=== PATIENT | male | born 1955 | race Caucasian/White ===

== ENCOUNTER 2022-09-23 05:26 | Observation (INO) ==
--- NOTE | 2022-08-17 11:45 | PAT Medication Instructions ---
Medication Instructions Date of Service August 17, 2022 Home Medications Medication Instructions Recorded lisinopril 20 mg tablet 20 mg PO BID #180 tabs 04/26/22 oxycodone-acetaminophen 5 mg-325 1 tab PO Q6H PRN pain #20 tabs 05/12/22 mg tablet (Percocet) carvedilol 6.25 mg tablet 6.25 mg PO BID #180 tabs 06/27/22 lisinopril 20 mg tablet 20 mg PO BID amlodipine 10 mg tablet 10 mg PO QAM omeprazole 20 mg capsule,delayed release 20 mg PO QAM pravastatin 10 mg tablet 10 mg PO QAM oxycodone-acetaminophen 5 mg-325 mg tablet (Percocet) 1 tab PO Q6H PRN carvedilol 6.25 mg tablet 6.25 mg PO BID DO NOT take the morning of surgery lisinopril 20 mg tablet 20 mg PO BID Take morning of surgery With a small sip of water, OTHERWISE NOTHING TO EAT OR DRINK AFTER MIDNIGHT: amlodipine 10 mg tablet 10 mg PO QAM omeprazole 20 mg capsule,delayed release 20 mg PO QAM pravastatin 10 mg tablet 10 mg PO QAM oxycodone-acetaminophen 5 mg-325 mg tablet (Percocet) 1 tab PO Q6H PRN(if needed) carvedilol 6.25 mg tablet 6.25 mg PO BID Take evening before surgery lisinopril 20 mg tablet 20 mg PO BID oxycodone-acetaminophen 5 mg-325 mg tablet (Percocet) 1 tab PO Q6H PRN(if needed) carvedilol 6.25 mg tablet 6.25 mg PO BID Other Notes If you have any questions please call us at [phone] or [phone] or [phone] or [phone]
--- NOTE | 2022-08-23 09:22 | Anesthesiology Consultation ---
Date of Service August 23, 2022 Assessment & Plan (1) Encounter for pre-operative examination: Outpatient joint assessment: Patient is currently scheduled for inpatient pathway. If re-evaluated pending system levels during current pandemic/surgeon requests outpatient pathway, patient is acceptable candidate for outpatient joint program from anesthesia standpoint pending surgeon's office assessment of pt motivation/support/completion of same day joint program preop requirements. Chart Review Chart Review: Acceptable Risk for Surgery and Patient seen in Pre Admission Testing Teaching & Discussion Pre-Anesthesia Teaching/Discussion Notes: Instructed NPO after midnight before surgery, except medications with 15 cc of water. Medication instructions provided according to the PAT guidelines. History Surgery Operation Date: 09/23/22 09:20 Proposed Procedures p Left Total Knee Arthroplasty - Randal Watkins, Height/Weight Height: 5 ft 7 in Weight: 66.8 kg Allergies Allergy/AdvReac Type Severity Reaction Status Date / Time celecoxib [From Celebrex] Allergy Mild Shakiness Verified 08/16/22 08:31 telmisartan [From Micardis] Allergy Unknown Unknown Verified 08/16/22 08:31 Medications Home Medications Medication Instructions Recorded Confirmed Last Taken lisinopril 20 mg tablet 20 mg PO BID #180 tabs 04/26/22 08/16/22 05/12/22 06:00 amlodipine 10 mg tablet 10 mg PO QAM 04/28/22 08/16/22 05/12/22 06:00 omeprazole 20 mg capsule,delayed 20 mg PO QAM 04/28/22 08/16/22 05/12/22 06:00 release pravastatin 10 mg tablet 10 mg PO QAM 04/28/22 08/16/22 05/12/22 06:00 oxycodone-acetaminophen 5 mg-325 1 tab PO Q6H PRN pain #20 tabs 05/12/22 08/16/22 Unknown mg tablet (Percocet) carvedilol 6.25 mg tablet 6.25 mg PO BID #180 tabs 06/27/22 08/16/22 Unknown Wheeled Walker #1 ea 08/23/22 08/23/22 Unknown Past Medical History Medical History (Updated 08/23/22 @ 09:28 by Yoselyn Corrales PA-C) Adrenal adenoma 3.7 cm BPH (benign prostatic hyperplasia) Congenital absence of left kidney GERD (gastroesophageal reflux disease) controlled, stable per pt History of nicotine use HLD (hyperlipidemia) HTN (hypertension) controlled, stable per pt Lumbar facet arthropathy Lung nodule, multiple 4mm and 5mm right lobe Sacroiliac joint pain Patient denies h/o stroke, seizures, heart attack, heart failure, DM, blood clots or blood transfusions. Exercise / Class Metabolic Activity III < 4 Walking/Shop/Light housework (denies CP or SOB with usual activities) Past Family History Family History Mother Colorectal cancer Heart disease Father Cancer melanoma Brother Cancer pancreatic Past Surgical History Surgical History H/O colonoscopy H/O ventral hernia repair Hx of knee surgery Lt. Hx of tooth extraction S/P left knee arthroscopy 05/2022 [facility]: LMA#5. Past Anesthesia History No Hx of Anesthesia Complications and No Family Hx of Anesthesia Complications History of PONV No Hx of PONV and No Hx of Motion Sickness Social History Smoking Status: Current every day smoker tobacco type: cigarettes Smoking cigarettes per day: 10-12/day-ADVISED Do You Dip or Chew Tobacco: No Hx Alcohol Use: Yes Alcohol type: beer alcohol intake frequency: 0-2 drinks per day (3 drinks several nights weekly) Hx Substance Use: No substance use type: does not use Review of Systems Patient denies chest pain, shortness of breath, dyspnea on exertion, snoring, witnessed apneas, fever, chills, cough, wheezing, or palpitations. Physical Exam Vital Signs Vitals BP 166/84, pt states is anxious regarding surgery and that BP typically runs 130-80s P 78 TEMP 98.3 SP02 97% on RA RESP 17 Physical Full cervical extension range of motion without pain TMD 3.5 finger breadths Mallampati Score 2 Dentition: intact, several caps/crowns; denies chipped or loose teeth, implants, bridges Lungs: normal respiratory effort. Clear throughout to auscultation, no adventitious breath sounds Cardiac: regular rate and rhythm, no murmurs noted Carotid arteries: negative bruit bilat Lab Results Anesthesia Preop Results Results Anesthesia Widget: WBC 8.17 K/ul (4.8-10.8) 08/23/22 Hgb 14.2 g/dl (14.0-18.0) 08/23/22 Hct 40.6 % (40.1-51.0) 08/23/22 Plt 306 K/uL (130-400) 08/23/22 Na 139 mmol/L (136-145) 08/23/22 K 4.0 mmol/L (3.5-5.1) 08/23/22 Cl 104 mmol/L (98-107) 08/23/22 CO2 27 mmol/L (21-32) 08/23/22 BUN 14 mg/dl (6-23) 08/23/22 Creat 0.94 mg/dl (0.6-1.4) 08/23/22 Glucose Level 92 mg/dl (70-99(Fasting)) 08/23/22 PT 10.7 Seconds (9.0-12.0) 08/23/22 PTT 24.5 Seconds (21.0-31.0) 08/23/22 INR 1.0 (0.9-1.1) 08/23/22 Blood Type A Negative 08/23/22 Antibody Screen NEGATIVE 08/23/22 Testing Electrocardiogram Date: 08/23/22 NSR, rate 62 bpm Rightward axis Other Testing CT chest 08/13/22 3.7 cm right adrenal adenoma Stable 5 mm solid pulmonary nodule RUL Stable 4 mm solid pulmonary nodule RLL COVID-19 Risk Screen Screening Information COVID-19 Screen Date: 08/23/22 Exposure 21 Days Family/Household +COVID Last 21 Days: No Exposure 10 Days Any COVID Exposure Last 10 Days: No Symptoms Last 10 Days Experienced COVID Sx Last 10 Days: No + COVID 0-90 Days COVID + in Last 0-90 Days: No
--- NOTE | 2022-09-22 13:03 | History & Physical Report ---
Date of Service September 22, 2022 Assessment & Plan (1) Osteoarthritis, knee: We will proceed with a left total knee arthroplasty. Postoperatively he will be started on aspirin for DVT prophylaxis and kept overnight in the hospital for postoperative medical management. He plans to use energy physical therapy upon discharge. History of Present Illness Chief Complaint: Osteoarthritis of the left knee. Primary Care Provider: Flor Shah DO Umang is a pleasant 67-year-old male who underwent a left knee arthroscopy about 4 months ago. He was found to have advanced osteoarthritis at that time. Unfortunately has not done well postoperatively. He continues to have a lot of left knee pain. X-rays have shown worsening arthritis to the left knee. After failing conservative treatment, he has elected proceed with a left total knee arthroplasty.. Allergies Allergy/AdvReac Type Severity Reaction Status Date / Time celecoxib [From Celebrex] Allergy Mild Shakiness Verified 08/16/22 08:31 telmisartan [From Micardis] Allergy Unknown Unknown Verified 08/16/22 08:31 Home Medications Medication Instructions Recorded Confirmed Type lisinopril 20 mg tablet 20 mg PO BID #180 tabs 04/26/22 08/16/22 Rx amlodipine 10 mg tablet 10 mg PO QAM 04/28/22 08/16/22 History omeprazole 20 mg capsule,delayed 20 mg PO QAM 04/28/22 08/16/22 History release pravastatin 10 mg tablet 10 mg PO QAM 04/28/22 08/16/22 History oxycodone-acetaminophen 5 mg-325 1 tab PO Q6H PRN pain #20 tabs 05/12/22 08/16/22 Rx mg tablet (Percocet) carvedilol 6.25 mg tablet 6.25 mg PO BID #180 tabs 06/27/22 08/16/22 Rx Wheeled Walker #1 ea 08/23/22 08/23/22 Rx Past Med/Surg History Medical History Adrenal adenoma 3.7 cm BPH (benign prostatic hyperplasia) Congenital absence of left kidney GERD (gastroesophageal reflux disease) controlled, stable per pt History of nicotine use HLD (hyperlipidemia) HTN (hypertension) controlled, stable per pt Lumbar facet arthropathy Lung nodule, multiple 4mm and 5mm right lobe Sacroiliac joint pain Surgical History H/O colonoscopy H/O ventral hernia repair Hx of knee surgery Lt. Hx of tooth extraction S/P left knee arthroscopy 05/2022 [facility]: LMA#5. Family History Mother Colorectal cancer Heart disease Father Cancer melanoma Brother Cancer pancreatic Social History Smoking Status: Current every day smoker Tobacco Type: Cigarettes Age Started Using Tobacco: 10; packs per day: 1; Cigarettes Per Day: 10-12/day-ADVISED; Second Hand Exposure: No; Hx Alcohol Use: Yes Alcohol type: beer Hx Substance Use: No Preferred Language: Telugu Communication Ability: Effective Visual Impairment: No Limitations Hearing Ability: Normal Repairer General Required: No Beliefs That Will Affect Care: None marital status: Current Living Situation: Alone current occupational status: retired How many Children do You have: 0 Feels Safe at Home: Yes Childhood Exposure to Second-Hand Smoke: Yes (mother did for a while) caffeine: Yes during the past year weight has: remained stable Dental Care, Regularly: Yes Physical Activity Frequency: 3-4 Times per Week Physical Activity Frequency Comment: golf Seatbelt Use: always Sunscreen Use: No Assistive Devices: None Review of Systems All systems reviewed & are unremarkable except as noted in HPI & below. Physical Exam On physical examination of the left knee, he has good range of motion of 0 to 120 degrees. No instability. Pain of the distal medial femoral condyle and over the medial joint line.. Constitutional WD/WN, vitals as above Eyes PERRL, conjunctivae normal, anicteric sclerae ENMT external ear and nose normal, oropharynx normal Neck trachea midline, no thyromegaly Respiratory normal respiratory effort, lungs clear to auscultation Cardiovascular RRR, no murmur, no edema Gastrointestinal (Abdomen) normal bowel sounds, soft, nontender, no hepatosplenomegaly Skin no rashes, warm and dry Psychiatric A+Ox3, euthymic affect Results & Data Results & Data Laboratory Results . Diagnostic Findings X-rays of the left knee do show some medial compartment arthritis with joint space narrowing osteophyte formation, and [id number] articulation.. PG Care Time/CCT Total # of Minutes Spent Total Time Spent with Patient: Total time spent is greater than 50% in coordination of care (as documented) at patient's floor/unit and/or counseling patient: Coding Level of Care Code None Diagnoses Osteoarthritis, knee M17.10
[2022-09-23] MEDS ORDERED: GABAPENTIN 300 MG CAP PO SCH (06:00)
[2022-09-23] MEDS ORDERED: ACETAMINOPHEN 500 MG TAB PO SCH (06:00)
[2022-09-23] MEDS ORDERED: ceFAZolin 2000MG 2,000 MG/15 ML SYR IV SCH (06:00)
[2022-09-23] MEDS ORDERED: ORTHO JOINT MIX INFIL SCH (06:00)
[2022-09-23] MEDS ORDERED: LR 500ML BOLUS, THEN 15ML/HR IV SCH (06:00)
[2022-09-23] MEDS ORDERED: LR 60ML/HR IV SCH (06:00)
[2022-09-23] MEDS ORDERED: TRANEXAMIC ACID 1,000 MG **IV Intra-op IV SCH (06:00)
[2022-09-23] MEDS ORDERED: dexAMETHasone 4 MG TAB PO SCH (06:00)
[2022-09-23] MEDS ORDERED: FAMOTIDINE 20 MG TAB PO SCH (06:00)
[2022-09-23] MEDS ORDERED: TRANEXAMIC ACID 1,000 MG **IV Pre-op IV SCH (06:00)
[2022-09-23] MEDS ORDERED: ROPIVACAINE 0.5% 5 MG/ML 30 ML VIAL ONE (06:17)
[2022-09-23] MEDS ORDERED: BUPIVACAINE 0.5 % 5 MG/1 ML PF 10ML VIAL ONE (06:17)
--- NOTE | 2022-09-23 06:27 | History & Physical Bridge Note ---
Date of Service September 23, 2022 History & Physical Bridge Note I have examined the patient, reviewed the History & Physical and in the interval since the performance of the History & Physical I have noted the following changes of clinical significance: no changes noted
[2022-09-23] MEDS ORDERED: ORTHO JOINT ANESTHETIC ONE (07:18)
[2022-09-23] MEDS ORDERED: PROPOFOL IV EMULSION 10 MG/ML 20 ML VIAL IV ONE (07:19)
[2022-09-23] MEDS ORDERED: LIDOCAINE 2% 20 MG/ML 5 ML SYR IV ONE (07:19)
[2022-09-23] MEDS ORDERED: fentaNYL citrate 100 MCG/2 ML VIAL ONE (07:20)
[2022-09-23] MEDS ORDERED: MIDAZOLAM HCL 1 MG/ML 2ML VIAL ONE (07:20)
[2022-09-23] MEDS ORDERED: PHENYLEPHRINE HCL 10 MG/ML VIAL ONE (07:37)
[2022-09-23] MEDS ORDERED: ATROPINE SULFATE 0.1 MG/ML 10ML SYR IV PRN (08:16)
[2022-09-23] MEDS ORDERED: ePHEDrine sulfate 50 MG/ML AMP IV PRN (08:16)
[2022-09-23] MEDS ORDERED: HYDROmorphone INJ 1 MG/ML SYRINGE IV PRN (08:16)
[2022-09-23] MEDS ORDERED: ONDANSETRON INJ 2 MG/ML 2 ML VIAL IV PRN ×2 (08:16→10:38)
[2022-09-23] MEDS ORDERED: ePHEDrine sulfate 50 MG/ML AMP ONE (08:19)
--- NOTE | 2022-09-23 08:59 | Operative Report ---
PG Post Operative Report Pre & Post Diagnosis Operation Date: 09/23/22 08:10 Pre-Op Diagnosis: Left Knee Dengerative Joint Disease Post-Op Diagnosis: Left Knee Dengerative Joint Disease I identified the patient and participated in the time-out.: Yes Procedure Operation Date: 09/23/22 08:10 Actual Procedures p Left Total Knee Arthroplasty(Left) - Randal Watkins DO Surgeon Randal Watkins DO Time Study Observer Randal Wong PA-C Estimated Blood Loss 5 Findings Consistent with Post-Op Diagnosis Specimens Left femoral and tibial bone Description of Procedure Implants used: I used a Gilda Persona total knee arthroplasty system with a size 6 standard femur, E tibia, 31 oval patella, and a size 10 medial congruent polyethylene bearing. All components were cemented in place with Biomet cement. [facility] for the above procedure. He was seen in the preoperative holding area and the operative extremity was identified and signed. He was given a preoperative antibiotic, TXA, a spinal anesthetic and an adductor nerve block. He was taken back to the operating room and laid on the table in supine position. He was given basic sedation. The operative knee was then prepped and draped in sterile fashion. A timeout was done, and the patient and the operative extremity was properly identified. A midline incision was made directly over the patella. Dissection was taken down to the extensor mechanism. A subvastus arthrotomy was used. The medial retinaculum was released and the fat pad was mostly excised. The knee was flexed and the ACL, PCL, and meniscus were removed. A drill was sent down the center of the femoral canal followed by an intramedullary marimar. Off that marimar a distal femoral cutting block was placed. 9 mm was resected off the distal femur at 5 of valgus. A posterior referencing AP sizing guide was then placed on the distal femur. The femur measured to be a size 6. 2 drill holes were placed in 3 of external rotation. A 4-in-1 cutting block was then impacted into place. Anterior, posterior, and chamfer cuts were then made. The proximal tibia was then exposed. An external tibial alignment guide was placed. A tibial cut guide was then anchored in place and the proximal tibia was then resected. The posterior aspect of the knee was then opened up and any additional meniscus fragments and osteophytes were removed. The tibia measured to be a size E. The tibial plate was then placed in the appropriate rotation and the tibia was drilled and punched. Trial components were then placed. I used a size 10 medial congruent polyethylene insert. The knee was brought through a full range of motion and felt to be stable. The peg holes for the femoral component were then drilled. The patella was then everted and 9 mm was resected off the posterior aspect of the patella. The patella measured to be a size 31 oval. 3 peg holes were then drilled. A trial patella was placed. The knee was once again brought through a full range of motion and felt to be stable. Trial components were then removed. The surrounding soft tissues were injected with 100 cc of an orthopedic pain control cocktail. All components were then cemented into place with Biomet cement. The final polyethylene insert was then snapped into place. Once cement was dry the tourniquet was deflated. Hemostasis was obtained. A dilute betadyne lavage was then done for 3 minutes. The joint was then irrigated with normal saline solution. The subvastus arthrotomy was then closed with #1 Vicryl suture. The skin was closed with 2-0 Vicryl, 3-0V lock suture, and jonna. A soft compressive dressing was placed. He was then transferred to a hospital bed and taken to the postanesthesia care unit in stable condition. He tolerated the procedure well. Randal Wong PA-C, was present for the entire procedure. He was critical for patient positioning, prepping, draping, retraction exposure, wound closure and application of sterile dressing. I attest to the content of the Intraoperative Record and any orders documented therein. Any exceptions are noted below.
--- NOTE | 2022-09-23 10:26 | XRay Report ---
LEFT KNEE 2 VIEWS History: Left total knee arthroplasty. Degenerative arthritis. Postop. FINDINGS: The patient is status post a left total knee arthroplasty. The hardware is intact. No fract ure or dislocation. Skin jonna are in place. IMPRESSION: Left total knee arthroplasty. No evidence for hardware complication. ACT 112: Negative or not required by law. Electronically signed by: Cullen De La Garza M.D. 09/23/2022 10:24 AM
[2022-09-23] MEDS ORDERED: MAGNESIUM HYDROXIDE SUSP 30 ML UDC PO PRN (10:38)
[2022-09-23] MEDS ORDERED: METOCLOPRAMIDE HCL INJ 5 MG/ML 2 ML VIAL IV PRN (10:38)
[2022-09-23] MEDS ORDERED: HYDROmorphone INJ 0.5 MG/0.5 ML SYR IV PRN (10:38)
[2022-09-23] MEDS ORDERED: oxyCODONE HCL IR 5 MG TAB (IMMEDIATE RELEASE) PO PRN (10:38)
[2022-09-23] MEDS ORDERED: SODIUM CHLORIDE 0.9% 1000ML 1,000 ML IV SCH (10:38)
[2022-09-23] MEDS ORDERED: bisacodyL 10 MG SUPP PR PRN (10:38)
[2022-09-23] MEDS ORDERED: NALOXONE HCL 0.4 MG/1 ML VIAL/CARP IV PRN (10:38)
--- NOTE | 2022-09-23 10:52 | Anesthesiology Progress Note ---
Date of Service September 23, 2022 Anesthesia Post Procedure Vital Signs Vital Signs: Temp Pulse Pulse Resp BP Pulse Ox O2 Del Method 09/23/22 10:10 36.4 C L 62 20 107/61 91 Room Air 09/23/22 10:00 55 L 17 110/62 94 Room Air 09/23/22 09:50 57 L 18 97/64 L 98 Room Air 09/23/22 09:40 52 L 16 108/57 L 99 Oxymask 09/23/22 09:30 61 14 92/54 L 99 Oxymask 09/23/22 09:23 36.2 C L 79 14 97/64 L 95 Oxymask 09/23/22 05:53 36.9 C 73 20 158/75 H 98 Room Air O2 Flow Rate 09/23/22 10:10 09/23/22 10:00 09/23/22 09:50 09/23/22 09:40 4 09/23/22 09:30 6 09/23/22 09:23 6 09/23/22 05:53 Pain Intensity Left Knee: Pain Intensity: 5 Transfer of Care Handoff Completed per policy Notes Mental Status: alert / awake / arousable Patient Amnestic to Procedure: Yes Nausea / Vomiting: adequately controlled Pain: adequately controlled Airway Patency, RR, SpO2: stable & adequate BP & HR: stable & adequate Hydration State: stable & adequate Neuraxial Anesthesia: was administered and sensory block is resolving Anesthetic Complications: no major complications apparent
[2022-09-23] MEDS: KETOROLAC TROMETHAMINE 15 MG/ML VIAL IM SCH ×3 (11:52→23:01)
[2022-09-23] MEDS: ACETAMINOPHEN 500 MG TAB PO SCH ×2 (13:20→21:19)
[2022-09-23] MEDS: ceFAZolin 2000MG 2,000 MG/15 ML SYR IV SCH ×2 (16:03→23:01)
[2022-09-23] MEDS ORDERED: Nursing to Pharmacy Communication SCH (16:15)
[2022-09-23] MEDS: lisinopril 20 MG TAB PO SCH (17:41)
[2022-09-23] MEDS: carvediloL 6.25 MG TAB PO SCH (17:41)
[2022-09-23] MEDS ORDERED: lisinopril 20 MG TAB PO SCH ×2 (18:00→21:00)
[2022-09-23] MEDS: DOCUSATE SODIUM 100 MG CAP PO SCH (20:25)
[2022-09-23] MEDS: ASPIRIN 81 MG ECTAB PO SCH (20:25)
[2022-09-23] MEDS ORDERED: carvediloL 6.25 MG TAB PO SCH (21:00)
[2022-09-23] MEDS ORDERED: SENNA 8.6 MG TAB PO SCH (21:00)
[2022-09-24] MEDS: KETOROLAC TROMETHAMINE 15 MG/ML VIAL IM SCH (05:38)
[2022-09-24] MEDS: ACETAMINOPHEN 500 MG TAB PO SCH (06:39)
--- NOTE | 2022-09-24 07:56 | Orthopedic Progress Note ---
Date of Service September 24, 2022 Assessment & Plan (1) Status post left knee replacement: Overall he is doing very well. He is not having much pain in the left knee. He will be seen by physical therapy today for ambulation and range of motion exercises. He is on aspirin for DVT prophylaxis. He can be discharged home later today. He will follow-up with orthopedics in 2 weeks. Popeye Heck was seen and examined at bedside this morning. Overall is doing very well. He is not having much pain in the left knee. He has been up and ambulating around the room. He has no complaints.. Review of Systems All systems reviewed & are unremarkable except as noted in HPI & below. Physical Exam On physical examination of the left knee, the dressing is clean and dry. He has active dorsiflexion plantarflexion of his left ankle. Sensation is intact throughout.. Results & Data Results & Data Laboratory Results . Diagnostic Findings Postoperative x-rays of the left knee show the prosthesis to be in anatomic alignment without any evidence of fracture, desiccation, or loosening. PG Care Time/CCT Total # of Minutes Spent Total Time Spent with Patient: Total time spent is greater than 50% in coordination of care (as documented) at patient's floor/unit and/or counseling patient: Coding Level of Care Code 90531 Post Operative Follow-Up Diagnoses Status post left knee replacement Z96.652
--- NOTE | 2022-09-24 07:57 | Discharge Summary ---
Date of Service September 24, 2022 Admission HPI (Per Admitting) Umang is a pleasant 67-year-old male who underwent a left knee arthroscopy about 4 months ago. He was found to have advanced osteoarthritis at that time. Unfortunately has not done well postoperatively. He continues to have a lot of left knee pain. X-rays have shown worsening arthritis to the left knee. After failing conservative treatment, he has elected proceed with a left total knee arthroplasty.. Admission Exam (Per Admitting) On physical examination of the left knee, he has good range of motion of 0 to 120 degrees. No instability. Pain of the distal medial femoral condyle and over the medial joint line.. Principal Diagnosis Same as "Discharge Diagnosis" noted below under Discharge Instructions. Discharge Exam On physical examination of the left knee, the dressing is clean and dry. He has active dorsiflexion plantarflexion of his left ankle. Sensation is intact throu ghout.. Discharge Data Procedures Performed Operation Date: 09/23/22 08:10 Actual Procedures p Left Total Knee Arthroplasty(Left) - Randal Watkins DO Ordered Studies 09/23/22 05:00 US - OR guided needle placemen Routine Hospital Course (1) Status post left knee replacement: On September 23, 2022 Umang arrived at [facility] and underwent a left knee replaced without complication. He had a spinal anesthetic. Postoperatively he was started on aspirin for DVT prophylaxis and transferred to the general orthopedic floors. His hospital course was uneventful. On postop day #1, his vital signs were stable and his pain was well controlled. He was able to participate well with physical therapy doing ambulation and range of motion exercises. He was then discharged home. He will follow-up with orthopedics in 2 weeks. PG Care Time/CCT Total # of Minutes Spent Total Time Spent with Patient: Total time spent is greater than 50% in coordination of care (as documented) at patient's floor/unit and/or counseling patient: Discharge Plan Discharge Items Patient Disposition: Home - Home Health Services Reason For Visit: Left Knee Dengerative Joint Disease Discharge Diagnosis: Left knee replacement Activity: Per Instructions section Non-emergency contact: Surgeon Call non-emergency contact if: your wound has increased redness and your wound has increased drainage Follow-up/Referrals: Flor Shah DO [Primary Care Provider] - Diet: Regular Addtl Attending Provider Instructions: Activity and Therapy Recommendations: * If you are using [facility] then therapy will be provided at your home until they feel you have accomplished all of your goals. * If you are using [facility] then Physical Therapy will be provided until they feel you are ready to start Outpatient Physical Therapy. * If you are not using home therapy then Outpatient Physical Therapy should start about 3-5 days from your day of surgery. Therapy will last about 6-10 weeks * It is important not to put a pillow under your knee when you are relaxing or sleeping. It is just as important to make sure you are getting your knee perfectly straight as it is to regain your knee bend. * You were shown a series of exercises in the hospital. Do these exercises three times each day including the exercises you were shown in physical therapy. * Get up and walk several times each day. For the first four weeks, try not to stand or walk for more than one hour at a time. If you do stand or walk for more than one hour, you will not hurt anything, but your leg will likely swell. * As you feel comfortable, you may change from the walker or crutches to a cane and then to independent walking. Medications: * Narcotic You will likely be sent home from the hospital with a prescription for the narcotic pain medication that worked best throughout your stay. * Aspirin Most patients will be required to take Aspirin 81mg twice a day for 6 weeks after surgery. This is obtained [id number] and a prescription is not necessary. * Other medications may be prescribed for specific circumstances. If you have any questions, please call the office at . * Resume previous home medications unless otherwise instructed TEDs/Elastic Stockings: The white elastic stockings help limit swelling and prevent blood clots from forming in your legs.~ The more you wear them, the more they work. Wear them for six weeks. Dressing Care: The dressing can be changed after physical therapy on postop day #1. Daily dry dressing changes for a few days, especially if the incision is still draining some. If the incision is not draining then you may leave the jonna open to air. If there is a little bit of drainage or if the jonna are getting stuck on your clothing then cover the incision with a dry dressing. The jonna will be removed at your 2 week follow-up appointment. Showering: You may shower 5 days from the day of surgery as long as the incision is no longer draining. You may shower with the jonna exposed. Let soapy water run over the jonna and pat them dry. Do not scrub or soak the incision. Things To Watch For: * Drainage from the incision site that occurs more than one week after your surgery. * Increased redness at the incision site. * Fever above 102 degrees Fahrenheit. * Unusual chest pain or shortness of breath. * Call [facility] at with any of the above problems Follow-Up Visit: Follow-up with Dr. Watkins's PA (Randal Wong) 2-3 weeks after your day of surgery. He will remove your jonna and answer any questions. If you have any additional questions or concerns, Dr Watkins is usually in the office at the same time and will be available An appointment was probably scheduled when you signed-up for surgery in the office. If you have any questions call Office Instructions: More detailed instructions as well as Frequently Asked Questions were provided in a folder by our office when you signed-up for surgery. Please review these instructions when you get home. If you have any further questions or concerns, please feel free to call the office at [phone] Pending Studies at Discharge: No Stand-Alone Forms: [facility], Smoking Cessation Medications and DC Order Prescriptions: New aspirin 81 mg Tablet,Delayed Release (Dr/Ec) 81 mg PO BID 42 Days Qty: 84 0RF Continued lisinopril 20 mg tablet 20 mg PO BID Qty: 180 3RF carvedilol 6.25 mg tablet 6.25 mg PO BID Qty: 180 1RF Rx Instructions: must administer with a meal/food (DME) [facility] See Rx Instructions .MEDSUPPLY Qty: 1 0RF Rx Instructions: As directed pravastatin 10 mg tablet 10 mg PO QAM amlodipine 10 mg tablet 10 mg PO QAM omeprazole 20 mg capsule,delayed release(DR/EC) 20 mg PO QAM oxycodone-acetaminophen [Percocet] 5-325 mg tablet 1 tab PO Q6H PRN (Reason: pain) Qty: 20 0RF Discharge Orders: Discharge Order (Routine); Ordered 09/24/22 Ordered By: Randal Watkins Admission Data Admit Date/Time: 09/23/22 09:25 Attending Provider: Randal Watkins Admit Provider: Randal Watkins Primary Care Provider: Flor Shah
[2022-09-24] MEDS ORDERED: dexAMETHasone 4 MG TAB PO SCH (08:00)
[2022-09-24] MEDS ORDERED: MULTIVITAMIN TAB PO SCH (09:00)
[2022-09-24] MEDS ORDERED: amLODIPine BESYLATE 5 MG TAB PO SCH (09:00)
[2022-09-24] MEDS ORDERED: PANTOprazole 40 MG TAB PO SCH (09:00)
[2022-09-24] MEDS ORDERED: PRAVASTATIN SOD 10 MG TAB PO SCH (09:00)
[2022-09-24] MEDS: carvediloL 6.25 MG TAB PO SCH (09:25)
[2022-09-24] MEDS: DOCUSATE SODIUM 100 MG CAP PO SCH (09:27)
[2022-09-24] MEDS: ASPIRIN 81 MG ECTAB PO SCH (09:27)
[2022-09-24] MEDS: lisinopril 20 MG TAB PO SCH (09:28)
== END 2022-09-24 11:19 | disposition home health service (06) ==
LOC: 3E 05:26 → ASU 05:26